=== PATIENT | female | born 1985 | race Caucasian/White ===

== ENCOUNTER 2017-11-12 22:18 | Emergency (ER) | payer SELFPAY ==
[2017-11-12 23:00] LABS: BILIRUBIN,URINE NEGATIVE (NEGATIVE); CALCIUM OXALATE CRYSTALS,URINE TOO NUMEROUS TO CNT /HPF; GLUCOSE, URINE NEGATIVE (NEGATIVE); KETONES,URINE NEGATIVE (NEGATIVE); LEUKOCYTE ESTERASE,URINE NEGATIVE (NEGATIVE); NITRITE,URINE NEGATIVE (NEGATIVE); PROTEIN,URINE NEGATIVE (NEGATIVE); URINE SPECIFIC GRAVITY 1.023
[2017-11-12 23:01] LABS: APPEARANCE,URINE SLIGHTLY HAZY; COLOR,URINE YELLOW
[2017-11-12] MEDS ORDERED: ONDANSETRON HCL INJ/PF 4 MG/2 ML SDV IV ONE (23:11)
[2017-11-12] MEDS ORDERED: NORMAL SALINE 1000 ML 1,000 ML IV ONE (23:11)
--- NOTE | 2017-11-12 23:12 | ER Document Report ---
ED Medical Screen (RME) - General Chief Complaint: Abdominal Pain Stated Complaint: FLANK PAIN Time Seen by Provider: 11/12/17 23:09 Mode of Arrival: Ambulatory Information source: Patient Notes: Patient presents complaining of right upper quadrant abdominal pain that will occasionally cross over to the left upper quadrant. Patient states that she had her gallbladder removed 6 years ago and at that time there was a stone in her common bile duct and they placed a stent in her common bile duct at that time. Patient states that she never followed up after having her surgery. Patient reports nausea and vomiting about 8 times today. Patient reports that urine is dark. Patient was seen at a doctor's office this week and was told that she had elevated liver function tests. TRAVEL OUTSIDE OF THE [place] IN LAST 30 DAYS: No - Related Data Allergies/Adverse Reactions: No Known Allergies Allergy (Unverified 11/12/17 22:25) Physical Exam - Vital signs Vitals: Temp Pulse Resp BP Pulse Ox 98 F 65 20 130/77 H 99 11/12/17 22:29 11/12/17 22:29 11/12/17 22:29 11/12/17 22:29 11/12/17 22:29 - Abdominal Tenderness: Tender - Right upper quadrant Course - Vital Signs Vital signs: Temp Pulse Resp BP Pulse Ox 98 F 65 20 130/77 H 99 11/12/17 22:29 11/12/17 22:29 11/12/17 22:29 11/12/17 22:29 11/12/17 22:29 - Laboratory Laboratory results interpreted by me: 11/12/17 22:30 Urine Urobilinogen 4.0 H
[2017-11-12 23:18] LABS: ABSOLUTE EOSINOPHILS # (AUTO) 0.2 10^3/uL (0.0-0.6); ABSOLUTE MONOCYTES (AUTO) 0.4 10^3/uL (0.1-1.4); ABSOLUTE NEUT (AUTO) 5.6 10^3/uL (1.7-8.2); BASOPHILS % (AUTO) 0.4 % (0-2); EOSINOPHILS % (AUTO) 2.1 % (0-6); HEMATOCRIT 39.6 % (36.0-47.0); HEMOGLOBIN 13.5 g/dL (12.0-15.5); LYMPHOCYTES % (AUTO) 24.5 % (13-45); MEAN CORPUSCULAR HEMOGLOBIN 28.7 pg (27.0-33.4); MEAN CORPUSCULAR VOLUME 85 fl (80-97); MONOCYTES % (AUTO) 4.6 % (3-13); PLATELET COUNT 355 10^3/uL (150-450); RED BLOOD COUNT 4.69 10^6/uL (3.72-5.28); RED CELL DISTRIBUTION WIDTH 14.5 % (11.5-14.0); SEGMENTED NEUTROPHILS % (AUTO) 68.4 % (42-78); TOTAL CELLS COUNTED % (AUTO) 100 %; WHITE BLOOD COUNT 8.2 10^3/uL (4.0-10.5)
[2017-11-12 23:45] LABS: ALANINE AMINOTRANSFERASE 294 U/L (9-52); ALBUMIN 4.7 g/dL (3.5-5.0); ALKALINE PHOSPHATASE 637 U/L (38-126); ANION GAP 12 (5-19); ASPARTATE AMINO TRANSFERASE 198 U/L (14-36); BILIRUBIN,TOTAL 1.2 mg/dL (0.2-1.3); BLOOD UREA NITROGEN 13 mg/dL (7-20); CALCIUM 10.5 mg/dL (8.4-10.2); CARBON DIOXIDE 28 mmol/L (22-30); CHLORIDE 102 mmol/L (98-107); GLUCOSE 99 mg/dL (75-110); LIPASE 140.9 U/L (23-300); POTASSIUM 4.1 mmol/L (3.6-5.0); SODIUM 141.6 mmol/L (137-145); TOTAL PROTEIN 8.1 g/dL (6.3-8.2)
--- NOTE | 2017-11-13 00:38 | ER Document Report ---
ED General - General Chief Complaint: Abdominal Pain Stated Complaint: FLANK PAIN Time Seen by Provider: 11/12/17 23:09 Mode of Arrival: Ambulatory Notes: 32-year-old female presents with several day history of upper abdominal pain nausea and vomiting. This is been going on for a couple of weeks but her vomiting frequency has increased she is now not tolerating p.o. and the pain is worse. She has no fevers chills or shaking. She feels like her urine is gotten quite dark and complains of "peeing bile" She has a history of a cholecystectomy, retained stone, and an ERCP where she states they failed to remove the stone but they did a stent. This was in [place] and was 8 years ago. Since then she has had problems with her weight, intermittent nausea but has not seen a GI doctor. She was told her liver enzymes were elevated when she saw primary care doctor last week but does not have the numbers. TRAVEL OUTSIDE OF THE [place] IN LAST 30 DAYS: No - Related Data Allergies/Adverse Reactions: No Known Allergies Allergy (Unverified 11/12/17 22:25) Past Medical History - General Information source: Patient - Social History Smoking Status: Never Smoker Family History: None Review of Systems - Review of Systems Notes: REVIEW OF SYSTEMS GEN: Denies fever, chills, weight loss ENT: Denies sore throat, nasal discharge, ear pain EYES: Denies blurry vision, eye pain, discharge CV: Denies chest pain, palpitations, edema RESP: Denies cough, shortness of breath, wheezing GI: D abdominal pain nausea vomiting MSK: Denies joint pain/swelling, edema, SKIN: Denies rash, skin lesions LYMPH: Denies swollen glands/lymph nodes NEURO: Denies headache, focal weakness or numbness, dizziness PSYCH: Denies depression, suicidal or homicidal ideation PHYSICAL EXAMINATION General: No acute distress, well-nourished Head: Atraumatic, normocephalic ENT: Mouth normal, oropharynx moist, no exudates or tonsillar enlargement Eyes: Conjunctiva normal, pupils equal, lids normal. No icterus. Neck: No JVD, supple, no guarding CVS: Normal rate, regular rhythm, no murmurs Resp: No resp distress, equal and normal breath sounds bilaterally GI: Nondistended, soft, minimal epigastric tenderness to palpation, no rebound or guarding Ext: No deformities, no edema, normal range of motion in upper and lower ext Back: No CVA or midline TTP Skin: No rash, warm. No jaundice. Lymphatic: No lymphadeopathy noted Neuro: Awake, alert. Face symmetric. GCS 15. Physical Exam - Vital signs Vitals: Temp Pulse Resp BP Pulse Ox 98 F 65 20 130/77 H 99 11/12/17 22:29 11/12/17 22:29 11/12/17 22:29 11/12/17 22:29 11/12/17 22:29 Course - Re-evaluation Re-evalutation: 11/13/17 00:40 This is a 32-year-old female with a history of choledocholithiasis with a stent in place currently presenting with increasing frequency of vomiting superimposed on chronic GI issues. She does not have any vital sign abnormalities is not jaundiced on exam. Her tenderness is minimal. Her differential includes choledocholithiasis, clogged stent, less likely cholangitis. Possible hepatitis or pancreatitis. Labs have been sent ultrasound has been ordered. I will treat her with fluids, and IV antiemetics. 11/13/17 01:59 Labs show elevated alk phos to high 600s as well as elevated transaminases. Patient is still nauseous. She received Zofran was reassessed around 1:50 AM and is feeling better. Her ultrasound shows dilated common bile duct to 1.3 cm. I do not have an old imaging study to compare this to. She probably has a smoldering course with clogged stents. Her lipase is normal so there is no pancreatitis. She has no insurance and has no ability to follow-up. This coupled with her likely need for a GI consultation in the height of her alk phos elevation to find her for transfer to higher level of care for GI consult. Contacted [facility] approximately 1:40 AM. 11/13/17 02:[address] Jaden de paz at 2:17 AM. N.p.o. Maintenance fluids. - Vital Signs Vital signs: Temp Pulse Resp BP Pulse Ox 98 F 65 20 130/77 H 99 11/12/17 22:29 11/12/17 22:29 11/12/17 22:29 11/12/17 22:29 11/12/17 22:29 - Laboratory Result Diagrams: 11/12/17 23:08 11/12/17 23:08 Laboratory results interpreted by me: 11/12/17 11/12/17 11/12/17 22:30 23:08 23:08 RDW 14.5 H Calcium 10.5 H Direct Bilirubin 1.0 H AST 198 H ALT 294 H Alkaline Phosphatase 637 H Urine Urobilinogen 4.0 H - Diagnostic Test Radiology reviewed: Image reviewed, Reports reviewed Discharge - Discharge Clinical Impression: Choledocholithiasis Condition: Fair Disposition: [facility]
--- NOTE | 2017-11-13 01:07 | RADIOLOGY REPORT (SQ) ---
EXAM DESCRIPTION: U/S ABDOMEN LIMITED W/O DOP CLINICAL HISTORY: choledocholithiais, elev LFT, h/o cholecyst COMPARISON: None. TECHNIQUE: Real-time sonographic images of the right upper abdomen were obtained using a curved multihertz transducer. Overlying structures makes evaluation somewhat suboptimal. FINDINGS: The visualized portions of the pancreas are unremarkable. The visualized portions of the aorta and IVC are unremarkable. The liver has normal contour and echogenicity. Hepatopedal flow in the main portal vein. The common bile duct is dilated measuring 1.3 cm. No echogenic structures identified in the visualized portions of the common bile duct. Cholecystectomy. Negative reported sonographic Armijo sign. The right kidney measures 9.6 cm in length. No hydronephrosis, solid renal mass, or shadowing calculi. IMPRESSION: 1. Dilation of the common bile duct. No choledocholithiasis identified on this study. Dilation may be related to prior cholecystectomy however if there is concern for biliary obstruction MRCP would provide additional characterization.
[2017-11-13 08:04] VITALS: BP 109/56
== END 2017-11-13 08:03 | disposition short-term general hospital (02) ==
LOC: ER 22:18
DX: K80.50 Calculus of bile duct without cholangitis or cholecystitis without obstruction (principal); R11.2 Nausea with vomiting, unspecified; Z90.49 Acquired absence of other specified parts of digestive tract; Z98.890 Other specified postprocedural states
CPT/HCPCS: 99285; 96361; 96374; 36415; 83690; 85025; 80053; 81001; 76705; J2405; J7030

== ENCOUNTER 2018-07-19 15:57 | Emergency (ER) | payer MEDICAID ==
[2018-07-19] MEDS ORDERED: NORMAL SALINE 1000 ML 1,000 ML IV ONE (16:50)
[2018-07-19] MEDS ORDERED: FENTANYL CITRATE INJ/PF 100 MCG/2 ML AMPUL IV ONE (16:50)
[2018-07-19] MEDS ORDERED: ONDANSETRON HCL INJ/PF 4 MG/2 ML SDV IV ONE (16:50)
--- NOTE | 2018-07-19 16:52 | ER Document Report ---
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 With abdominal pain radiating to the back. On examination-right upper quadrant tenderness as well as right flank tenderness noted. TRAVEL OUTSIDE OF THE [place] IN LAST 30 DAYS: No - Related Data Allergies/Adverse Reactions: No Known Allergies Allergy (Verified 07/19/18 16:46) Past Medical History - Social History Chew tobacco use (# tins/day): No Frequency of alcohol use: None Drug Abuse: None Renal/ Medical History: Denies: Hx Peritoneal Dialysis Physical Exam - Vital signs Vitals: Temp Pulse Resp BP Pulse Ox 97.8 F 105 H 16 143/74 H 100 07/19/18 16:06 07/19/18 16:06 07/19/18 16:06 07/19/18 16:06 07/19/18 16:06 Course - Vital Signs Vital signs: Temp Pulse Resp BP Pulse Ox 97.8 F 105 H 16 143/74 H 100 07/19/18 16:06 07/19/18 16:06 07/19/18 16:06 07/19/18 16:06 07/19/18 16:06
[2018-07-19 17:44] LABS: HEMATOCRIT 37.8 % (36.0-47.0); HEMOGLOBIN 12.9 g/dL (12.0-15.5); MEAN CORPUSCULAR HGB CONC 34.2 g/dL (32.0-36.0); MEAN CORPUSCULAR VOLUME 85 fl (80-97); PLATELET COUNT 255 10^3/uL (150-450); RED BLOOD COUNT 4.46 10^6/uL (3.72-5.28); RED CELL DISTRIBUTION WIDTH 14.6 % (11.5-14.0); WHITE BLOOD COUNT 13.3 10^3/uL (4.0-10.5)
[2018-07-19 17:58] LABS: APPEARANCE,URINE SLIGHTLY-CLOUDY; BILIRUBIN,URINE NEGATIVE (NEGATIVE); COLOR,URINE YELLOW; GLUCOSE, URINE NEGATIVE (NEGATIVE); KETONES,URINE NEGATIVE (NEGATIVE); LEUKOCYTE ESTERASE,URINE NEGATIVE (NEGATIVE); NITRITE,URINE NEGATIVE (NEGATIVE); PROTEIN,URINE NEGATIVE (NEGATIVE); URINE SPECIFIC GRAVITY 1.013
[2018-07-19 18:09] LABS: ALANINE AMINOTRANSFERASE 152 U/L (9-52); ALKALINE PHOSPHATASE 148 U/L (38-126); ANION GAP 11 (5-19); ASPARTATE AMINO TRANSFERASE 287 U/L (14-36); BILIRUBIN,DIRECT 1.3 mg/dL (0.0-0.4); BILIRUBIN,TOTAL 1.6 mg/dL (0.2-1.3); BLOOD UREA NITROGEN 6 mg/dL (7-20); CALCIUM 9.3 mg/dL (8.4-10.2); CARBON DIOXIDE 24 mmol/L (22-30); CHLORIDE 102 mmol/L (98-107); GLUCOSE 114 mg/dL (75-110); LIPASE 135.6 U/L (23-300); POTASSIUM 3.4 mmol/L (3.6-5.0); SODIUM 136.7 mmol/L (137-145); TOTAL PROTEIN 7.6 g/dL (6.3-8.2)
[2018-07-19 18:11] LABS: ABSOLUTE LYMPHOCYTES# (MANUAL) 0.7 10^3/uL (0.5-4.7); ABSOLUTE MONOCYTES # (MANUAL) 0.5 10^3/uL (0.1-1.4); ABSOLUTE NEUTROPHILS# (MANUAL) 12.1 10^3/uL (1.7-8.2); BASOPHILS % (MANUAL) 0 % (0-2); EOSINOPHILS % (MANUAL) 0 % (0-6); LYMPHOCYTES % (MANUAL) 5 % (13-45); MONOCYTES % (MANUAL) 4 % (3-13); SEGMENTED NEUTROPHILS % (MAN) 91 % (42-78); TOTAL CELLS COUNTED 100
[2018-07-19 18:12] LABS: PLATELET COMMENT ADEQUATE
--- NOTE | 2018-07-19 18:59 | RADIOLOGY REPORT (SQ) ---
EXAM DESCRIPTION: U/S ABDOMEN LIMITED W/O DOP COMPLETED DATE/TIME: 07/19/2018 6:50 pm REASON FOR STUDY: Gallbladder, RUQ PAIN COMPARISON: 11/13/2017 TECHNIQUE: Dynamic and static grayscale images acquired of the abdomen and recorded on PACS. Cliveo jarvis selected color Doppler and spectral images recorded. LIMITATIONS: None. FINDINGS: PANCREAS: No masses. The tail of pancreas was poorly seen. LIVER: No masses. Echotexture normal. LIVER VASCULATURE: Normal directional flow of the main portal vein and hepatic veins. GALLBLADDER: Surgically absent. ULTRASOUND-DETECTED STAHL'S SIGN: Not applicable. INTRAHEPATIC DUCTS AND COMMON DUCT: Common bile duct is dilated at 13 mm. A stent is present in the common bile duct. INFERIOR VENA CAVA: Not imaged. AORTA: No aneurysm. RIGHT KIDNEY: Normal size, 11 cm. Normal echogenicity. No solid or suspicious masses. No hydronephro sis. No calcifications. PERITONEAL AND RIGHT PLEURAL SPACE: No ascites or effusions. OTHER: No other significant findings. IMPRESSION: Status post cholecystectomy with dilatation of the common bile duct. However, there is a stent in the common bile duct. No significant intrahepatic ductal dilatation. TECHNICAL DOCUMENTATION: JOB ID: [id number] [employer] All Rights Reserved Reading location - IP/workstation name: [email or web address]
--- NOTE | 2018-07-19 19:34 | ER Document Report ---
ED General <TIMMY CAHPMAN - Last Filed: 07/20/18 16:04> - General Mode of Arrival: Ambulatory Information source: Patient TRAVEL OUTSIDE OF THE [place] IN LAST 30 DAYS: No <FANNY DICKINSON - Last Filed: 07/20/18 16:06> - General Chief Complaint: Abdominal Pain Stated Complaint: VOMITING, ABDOMINAL PAIN Time Seen by Provider: 07/19/18 16:50 Notes: Patient is a 33-year-old female who presents with chief complaint of abdominal pain. Patient reports she had a cholecystectomy done 10 years ago with a stent placed in the common bile duct for retained stones. Patient reports she was seen at this facility in December and was subsequently transferred to [facility] as she needed her stents to be replaced. Patient reports intermittent episodes of pain with vomiting which typically self resolved. Patient reports that today's episode did not resolve on its own. Patient denies any fevers. Patient does report that she is approximately 9 weeks . (FANNY DICKINSON) - Related Data Allergies/Adverse Reactions: No Known Allergies Allergy (Verified 07/19/18 16:46) Past Medical History - General Information source: Patient - Social History Smoking Status: Current Every Day Smoker Chew tobacco use (# tins/day): No Frequency of alcohol use: None Drug Abuse: None Family History: None Patient has suicidal ideation: No Patient has homicidal ideation: No Renal/ Medical History: Denies: Hx Peritoneal Dialysis Past Surgical History: Reports: Hx Cholecystectomy - With stent placement 2 last placed October 2017 at [facility] - Immunizations Immunizations up to date: Yes <FANNY DICKINSON - Last Filed: 07/20/18 16:06> Review of Systems - Review of Systems Constitutional: No symptoms reported EENT: No symptoms reported Cardiovascular: No symptoms reported Respiratory: No symptoms reported Gastrointestinal: Abdominal pain, Nausea, Vomiting Genitourinary: No symptoms reported Female Genitourinary: No symptoms reported Musculoskeletal: No symptoms reported Skin: No symptoms reported Hematologic/Lymphatic: No symptoms reported Neurological/Psychological: No symptoms reported <FANNY DICKINSON - Last Filed: 07/20/18 16:06> Physical Exam <TIMMY CHAPMAN - Last Filed: 07/20/18 16:04> <FANNY DICKINSON - Last Filed: 07/20/18 16:06> - Vital signs Vitals: Temp Pulse Resp BP Pulse Ox 97.8 F 105 H 16 143/74 H 100 07/19/18 16:06 07/19/18 16:06 07/19/18 16:06 07/19/18 16:06 07/19/18 16:06 - Notes Notes: PHYSICAL EXAMINATION: GENERAL: Well-appearing, well-nourished and in no acute distress. HEAD: Atraumatic, normocephalic. EYES: Pupils equal round and reactive to light, extraocular movements intact, conjunctiva are normal. ENT: Nares patent, oropharynx clear without exudates. Moist mucous membranes. NECK: Normal range of motion, supple without lymphadenopathy LUNGS: Breath sounds clear to auscultation bilaterally and equal. No wheezes rales or rhonchi. HEART: Regular rate and rhythm without murmurs ABDOMEN: Soft, nondistended abdomen. Mild tenderness to palpation to right upper quadrant. No guarding, no rebound. No masses appreciated. Female : deferred Musculoskeletal: Normal range of motion, no pitting or edema. No cyanosis. NEUROLOGICAL: Cranial nerves grossly intact. Normal speech, normal gait. Normal sensory, motor exams PSYCH: Normal mood, normal affect. SKIN: Warm, Dry, normal turgor, no rashes or lesions noted. (FANNY DICKINSON) Course - Laboratory Result Diagrams: 07/20/18 10:18 07/20/18 10:18 <TIMMY CHAPMAN - Last Filed: 07/20/18 16:04> - Laboratory Result Diagrams: 07/20/18 10:18 07/20/18 10:18 <FANNY DICKINSON - Last Filed: 07/20/18 16:06> - Re-evaluation Re-evalutation: 07/20/18 13:35 Patient resting comfortably, denies any complaints at this time. 07/20/18 16:04 Patient is stating that she is hungry and threatening to leave if she is going to have to stay here for extensive periods of time without leaving. [place] contacted [place] [facility] [place] to get an update. Transfer center states that patient should get a bed assignment around [address] Whaley agrees that patient can have dinner right now. Patient updated regarding status and is agreeable with waiting for transfer at this time. (TIMMY CHAPMAN) 07/19/18 19:32 Patient reports she is feeling much better at the time of my initial assessment. Patient reports she has frequent spells of abdominal pain and vomiting like this and has had them for many years. Patient states this one was just worse than most of her episodes. Patient does have leukocytosis with a left shift. AST, ALT and alk phos significantly elevated. Call placed to [facility] to speak with her GI specialist this patient reports she sees them and has seen them as recent as a few weeks ago. 07/19/18 20:[address] Babcock from [facility], he instructed that patient should be transferred however they are not accepting patients at thistime. Suggest to call [place] or [facility]. Called and spoke to [place], they are on a waiting list for beds. Called and spoke to [facility], they are on diversion at this time. Called and spoke to Tamy Hernandez who is also on diversion at this time. 07/19/18 21:25 Called and spoke to [place] again, awaiting callback from director of securities and real estate. 07/19/18 22:[address] Martinez at [place] who agrees to accept patient for transfer. They are currently on bed delay, the plan is for patient to go to the [facility] location when a bed opens up. He would like us to continue maintenance IV fluids, provide analgesic and pain medication. Monitor for signs of infection and plan to start antibiotics if she develops a fever. Patient continues to deny the need for any pain or nausea medication. IV fluids infusing at this time. Patient is asking for medication for headache. Will provide patient with Tylenol. 07/20/18 02:00 Handoff given to MONAE Aiken, patient updated on plan of care. (FANNY DICKINSON) - Vital Signs Vital signs: Temp Pulse Resp BP Pulse Ox 98.8 F 80 18 107/63 99 07/20/18 15:47 07/20/18 00:52 07/20/18 14:01 07/20/18 14:01 07/20/18 14:01 - Laboratory Laboratory results interpreted by me: 07/19/18 07/19/18 07/19/18 17:25 17:25 17:25 WBC 13.3 H Hgb Hct RDW 14.6 H Seg Neutrophils % Seg Neuts % (Manual) 91 H Lymphocytes % Lymphocytes % (Manual) 5 L Abs Neuts (Manual) 12.1 H Sodium 136.7 L Potassium 3.4 L Chloride BUN 6 L Creatinine Glucose 114 H Total Bilirubin 1.6 H Direct Bilirubin 1.3 H AST 287 H ALT 152 H Alkaline Phosphatase 148 H Total Protein Albumin Beta HCG, Quant 15430.00 H Urine Urobilinogen 4.0 H 07/20/18 07/20/18 10:18 10:18 WBC Hgb 11.9 L Hct 34.3 L RDW 14.5 H Seg Neutrophils % 86.5 H Seg Neuts % (Manual) Lymphocytes % 9.1 L Lymphocytes % (Manual) Abs Neuts (Manual) Sodium Potassium Chloride 108 H BUN 5 L Creatinine 0.51 L Glucose Total Bilirubin 3.3 H Direct Bilirubin 2.5 H AST 366 H ALT 414 H Alkaline Phosphatase 143 H Total Protein 6.2 L Albumin 3.3 L Beta HCG, Quant Urine Urobilinogen Discharge <TIMMY CHAPMAN - Last Filed: 07/20/18 16:04> <FANNY DICKINSON - Last Filed: 07/20/18 16:06> - Discharge Disposition: [place]
[2018-07-19] MEDS ORDERED: RINGERS SOLUTION,LACTATED 1,000 ML IV ONE (21:30)
[2018-07-20] MEDS ORDERED: ACETAMINOPHEN 325 MG TABLET PO ONE (01:10)
[2018-07-20] MEDS ORDERED: RINGERS SOLUTION,LACTATED 1,000 ML IV ONE (07:10)
--- NOTE | 2018-07-20 10:13 | ER Document Report ---
Doctor's Note Notes: 07/20/18 10:08 Interviewed and examined patient. Reviewed chart. Patient with a history of a cholecystectomy 10 years ago followed by a biliary stent because of residual stone which could not be removed. She has episodes of pain like she is having on this ER visit. She had a new stent placed at [facility] in December of this year. She had a very severe episode of this right upper quadrant pain last night associated with vomiting. However, patient says that her symptoms have improved significantly since she vomited last night. Says she feels much better now. Patient is approximately 9 weeks . Patient's labs showed very slight elevation of WBC at 13,300 with 91 segs, very slight elevation of LFTs. Normal lipase. Patient has received IV fluids, but no antibiotics at this point. Afebrile. 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 Calls were made to [place], [facility], and [facility] and none of them had any beds, although [place] has indicated that they expect to have a bed and will accept the patient in transfer. Arrangements have been made for the patient be transferred to [place]. Patient was allowed to have breakfast this morning. She looks very well. Abdomen is soft with slight tenderness in the right upper quadrant. Ultrasound here showed a status post cholecystectomy with dilatation of the common bile duct. There was a stent noted in the common bile duct. I am going to repeat some basic labs to make sure patient is stable. Rosetta Whaley MD 07/20/18 12:17 Complaining of nausea. Repeat labs shows improvement in her CBC, but her LFTs have gone up slightly more than they were. Patient remains without any other complaints.
[2018-07-20 10:55] LABS: ALANINE AMINOTRANSFERASE 414 U/L (9-52); ALBUMIN 3.3 g/dL (3.5-5.0); ALKALINE PHOSPHATASE 143 U/L (38-126); ANION GAP 8 (5-19); ASPARTATE AMINO TRANSFERASE 366 U/L (14-36); BILIRUBIN,DIRECT 2.5 mg/dL (0.0-0.4); BILIRUBIN,TOTAL 3.3 mg/dL (0.2-1.3); BLOOD UREA NITROGEN 5 mg/dL (7-20); CALCIUM 9.3 mg/dL (8.4-10.2); CARBON DIOXIDE 22 mmol/L (22-30); CHLORIDE 108 mmol/L (98-107); GLUCOSE 102 mg/dL (75-110); LIPASE 71.2 U/L (23-300); POTASSIUM 3.7 mmol/L (3.6-5.0); SODIUM 138.1 mmol/L (137-145); TOTAL PROTEIN 6.2 g/dL (6.3-8.2)
[2018-07-20 11:00] LABS: ABSOLUTE LYMPHOCYTES (AUTO) 0.9 10^3/uL (0.5-4.7); ABSOLUTE MONOCYTES (AUTO) 0.4 10^3/uL (0.1-1.4); ABSOLUTE NEUT (AUTO) 8.2 10^3/uL (1.7-8.2); BASOPHILS % (AUTO) 0.2 % (0-2); EOSINOPHILS % (AUTO) 0.5 % (0-6); HEMATOCRIT 34.3 % (36.0-47.0); HEMOGLOBIN 11.9 g/dL (12.0-15.5); LYMPHOCYTES % (AUTO) 9.1 % (13-45); MEAN CORPUSCULAR HEMOGLOBIN 29.4 pg (27.0-33.4); MEAN CORPUSCULAR HGB CONC 34.6 g/dL (32.0-36.0); MEAN CORPUSCULAR VOLUME 85 fl (80-97); MONOCYTES % (AUTO) 3.7 % (3-13); PLATELET COUNT 221 10^3/uL (150-450); RED BLOOD COUNT 4.04 10^6/uL (3.72-5.28); RED CELL DISTRIBUTION WIDTH 14.5 % (11.5-14.0); SEGMENTED NEUTROPHILS % (AUTO) 86.5 % (42-78); TOTAL CELLS COUNTED % (AUTO) 100 %; WHITE BLOOD COUNT 9.5 10^3/uL (4.0-10.5)
[2018-07-20] MEDS ORDERED: ONDANSETRON HCL INJ/PF 4 MG/2 ML SDV IV ONE (12:18)
[2018-07-20 19:48] VITALS: BP 104/50
== END 2018-07-20 20:05 | disposition short-term general hospital (02) ==
LOC: ER 15:57
DX: O26.891 Other specified pregnancy related conditions, first trimester (principal); Z3A.09 9 weeks gestation of pregnancy
CPT/HCPCS: 96376; 99285; 96361; 96374; 96375; 36415; 84702; 83690; 85025; 80053; 81001; 76705; J3490; J3010; J2405 ×2

== ENCOUNTER 2018-07-28 22:33 | Emergency (ER) | payer MEDICAID ==
[2018-07-29] MEDS ORDERED: NORMAL SALINE 1000 ML 1,000 ML IV ONE ×2 (00:09→03:07)
[2018-07-29] MEDS ORDERED: FENTANYL CITRATE INJ/PF 100 MCG/2 ML AMPUL IV ONE ×2 (00:09→01:22)
[2018-07-29] MEDS ORDERED: METOCLOPRAMIDE HCL INJ/PF 10 MG/2 ML SDV IV ONE (00:09)
--- NOTE | 2018-07-29 00:15 | ER Document Report ---
ED GI/ - General Mode of Arrival: Ambulatory Information source: Patient TRAVEL OUTSIDE OF THE [place] IN LAST 30 DAYS: No <GARCÍA DOBSON - Last Filed: 07/29/18 04:22> <JASON GUZMÁN - Last Filed: 07/29/18 06:21> - General Chief Complaint: Abdominal Pain Stated Complaint: ABDOMINAL PAIN/THROWING UP BLOOD Time Seen by Provider: 07/29/18 00:02 Notes: Patient is a 33 year old female approximately 10 weeks presents to the emergency department complaining of right upper quadrant pain and back pain. Patient states she was transferred to [place] 1 week ago for a bowel obstruction and discharged shortly after due to not being able to perform any procedures due to being . Patient states she has a copious amount of stones in her common bile duct and had stents placed in October 2017 and 7 years ago. She also reports having a cholecystectomy approximately 10 years ago. Patient states her pain is currently very severe. Patient also complains of nausea, hematemesis and a subjective fever. Patient states she follows up with GI specialist, Dr. Valladares, at [facility]. (GARCÍA DOBSON) - Related Data Allergies/Adverse Reactions: No Known Allergies Allergy (Verified 07/19/18 16:46) Past Medical History - General Information source: Patient - Social History Smoking Status: Current Every Day Smoker Cigarette use (# per day): Yes Chew tobacco use (# tins/day): No Smoking Education Provided: No Family History: None Past Surgical History: Reports: Hx Cholecystectomy - With stent placement 2 last placed October 2017 at [facility] - Immunizations Immunizations up to date: Yes <GARCÍA DOBSON - Last Filed: 07/29/18 04:22> Physical Exam - General General appearance: Other - Appears uncomfortable In distress: None - HEENT Head: Normocephalic Eyes: Normal Conjunctiva: Normal Extraocular movements intact: Yes Pupils: PERRL Mucous membranes: Dry Neck: Normal - Respiratory Respiratory status: No respiratory distress Chest status: Nontender Breath sounds: Normal Chest palpation: Normal - Cardiovascular Rhythm: Regular Heart sounds: Normal auscultation Murmur: No Friction rub: No Gallop: None auscultated - Abdominal Inspection: Normal Distension: No distension Tenderness: Tender - RUQ and Epigastric tender to palpation Organomegaly: No organomegaly - Back Back: Normal - Extremities General upper extremity: Normal ROM General lower extremity: Normal ROM - Neurological Neuro grossly intact: Yes Cognition: Normal Orientation: AAOx4 [place] Coma Scale Eye Opening: Spontaneous [place] Coma Scale Verbal: Oriented [place] Coma Scale Motor: Obeys Commands [place] Coma Scale Total: 15 Speech: Normal - Psychological Associated symptoms: Normal affect, Normal mood - Skin Skin Temperature: Warm Skin Moisture: Dry Skin Color: Normal <GARCÍA DOBSON - Last Filed: 07/29/18 04:22> - Vital signs Vitals: Temp Pulse Resp BP Pulse Ox 97.9 F 81 20 129/68 H 100 07/28/18 23:06 07/28/18 23:06 07/28/18 23:06 07/28/18 23:06 07/28/18 23:06 Course - Laboratory Result Diagrams: 07/29/18 00:20 07/29/18 00:20 <GARCÍA DOBSON - Last Filed: 07/29/18 04:22> - Laboratory Result Diagrams: 07/29/18 00:20 07/29/18 00:20 - Diagnostic Test Radiology reviewed: Reports reviewed <JASON GUZMÁN - Last Filed: 07/29/18 06:21> - Re-evaluation Re-evalutation: 07/29/18 04:22 [facility] accepts the patient to their services. (GARCÍA DOBSON) 07/29/18 03:06 Patient is a 33-year-old female with a history of cholecystectomy and biliary stent who comes in complaining of right upper quadrant pain and vomiting. Patient was recently seen on and transferred to [place] for further evaluation of possibly obstructed biliary stent. Patient is about 10 weeks and states that they will not do anything to her at [place] because of the . States that right upper quadrant pain, pain into back, and vomiting are worse than they have ever been. Denies having vomiting with this so far. She is [facility] on Tuesday. LFTs elevated. No fever. Patient is still vomiting currently despite Reglan. She still having pain despite fentanyl. Ultrasound showing the common bile duct is not 1.8 cm, up from 1.3 cm when she was seen on 07/19. There are no GI services available at this hospital. Patient's preference is to go to [facility] where her GI doctor is. 03:[address] Blair at [facility]. She will discuss with attending 04:22 Patient accepted to [facility] for evaluation of biliary stent with possible obstruction. 07/29/18 05:02 Patient resting comfortably. No further pain or vomiting. Medically stable for transfer. Agrees with transfer. 07/29/18 06:21 Patient complaining of abdominal pain. Morphine ordered again. Stable for transfer, awaiting ground. (JASON GUZMÁN) - Vital Signs Vital signs: Temp Pulse Resp BP Pulse Ox 97.9 F 81 20 129/68 H 100 07/28/18 23:06 07/28/18 23:06 07/28/18 23:06 07/28/18 23:06 07/28/18 23:06 - Laboratory Laboratory results interpreted by me: 07/29/18 07/29/18 07/29/18 00:20 00:20 02:35 WBC 16.7 H RDW 14.6 H Seg Neutrophils % 91.3 H Lymphocytes % 5.7 L Monocytes % 2.8 L Absolute Neutrophils 15.3 H Sodium 134.3 L Glucose 124 H Total Bilirubin 1.7 H Direct Bilirubin 1.5 H AST 168 H ALT 125 H Alkaline Phosphatase 175 H Beta HCG, Quant 16086.00 H Urine Ketones TRACE H Urine Urobilinogen 4.0 H Critical Care Note - Critical Care Note Total time excluding time spent on procedures (mins): 60 - Evaluation and management of abdominal pain, vomiting, evaluation of possible common bile duct obstruction, coordination of transfer, counseling of patient, multiple re- evaluations <JASNO GUZMÁN - Last Filed: 07/29/18 06:21> Discharge <GARCÍA DOBSON - Last Filed: 07/29/18 04:22> <JASON GUZMÁN - Last Filed: 07/29/18 06:21> - Discharge Clinical Impression: Bile duct obstruction Abdominal pain Qualifiers: Abdominal location: unspecified location Qualified Code(s): R10.9 - Unspecified abdominal pain Condition: Stable Disposition: [facility] Referrals: LILIBETH COOLEY MD [Primary Care Provider] - Follow up as needed Scribe Attestation: 07/29/18 05:05 I personally performed the services described in the documentation, reviewed and edited the documentation which was dictated to the scribe in my presence, and it accurately records my words and actions. (JASON GUZMÁN) Scribe Documentation - Scribe Written by Scribe:: Stacy Hdz, 07/29/2018 01:57 acting as scribe for :: Marcos <GARCÍA DOBSON - Last Filed: 07/29/18 04:22>
[2018-07-29 00:37] LABS: ABSOLUTE MONOCYTES (AUTO) 0.5 10^3/uL (0.1-1.4); ABSOLUTE NEUT (AUTO) 15.3 10^3/uL (1.7-8.2); BASOPHILS % (AUTO) 0.1 % (0-2); EOSINOPHILS % (AUTO) 0.1 % (0-6); HEMOGLOBIN 12.3 g/dL (12.0-15.5); LYMPHOCYTES % (AUTO) 5.7 % (13-45); MEAN CORPUSCULAR HEMOGLOBIN 29.1 pg (27.0-33.4); MEAN CORPUSCULAR HGB CONC 34.2 g/dL (32.0-36.0); MEAN CORPUSCULAR VOLUME 85 fl (80-97); MONOCYTES % (AUTO) 2.8 % (3-13); PLATELET COUNT 255 10^3/uL (150-450); RED BLOOD COUNT 4.23 10^6/uL (3.72-5.28); RED CELL DISTRIBUTION WIDTH 14.6 % (11.5-14.0); SEGMENTED NEUTROPHILS % (AUTO) 91.3 % (42-78); TOTAL CELLS COUNTED % (AUTO) 100 %; WHITE BLOOD COUNT 16.7 10^3/uL (4.0-10.5)
[2018-07-29 00:50] LABS: ALANINE AMINOTRANSFERASE 125 U/L (9-52); ALBUMIN 4.1 g/dL (3.5-5.0); ALKALINE PHOSPHATASE 175 U/L (38-126); ANION GAP 8 (5-19); ASPARTATE AMINO TRANSFERASE 168 U/L (14-36); BILIRUBIN,DIRECT 1.5 mg/dL (0.0-0.4); BILIRUBIN,TOTAL 1.7 mg/dL (0.2-1.3); BLOOD UREA NITROGEN 7 mg/dL (7-20); CALCIUM 9.3 mg/dL (8.4-10.2); CARBON DIOXIDE 25 mmol/L (22-30); CHLORIDE 101 mmol/L (98-107); CREATINE KINASE 41 U/L (30-135); GLUCOSE 124 mg/dL (75-110); LIPASE 97.3 U/L (23-300); POTASSIUM 4.2 mmol/L (3.6-5.0); SODIUM 134.3 mmol/L (137-145); TOTAL PROTEIN 7.2 g/dL (6.3-8.2)
--- NOTE | 2018-07-29 02:09 | RADIOLOGY REPORT (SQ) ---
Chest 2 view on 07/29/2018 at 2:26 AM CLINICAL INDICATION: Fever, nausea COMPARISON: None FINDINGS: The lungs are clear. Cardiac, hilar and mediastinal contours are within normal limits. Pulmonary vascularity is within normal limits. No bony abnormality is noted. IMPRESSION: No active disease.
[2018-07-29 02:56] LABS: APPEARANCE,URINE SLIGHTLY-CLOUDY; BILIRUBIN,URINE NEGATIVE (NEGATIVE); COLOR,URINE YELLOW; GLUCOSE, URINE NEGATIVE (NEGATIVE); KETONES,URINE TRACE mg/dL (NEGATIVE); LEUKOCYTE ESTERASE,URINE NEGATIVE (NEGATIVE); NITRITE,URINE NEGATIVE (NEGATIVE); PROTEIN,URINE NEGATIVE (NEGATIVE); URINE SPECIFIC GRAVITY 1.016
[2018-07-29] MEDS ORDERED: MORPHINE SULFATE 10 MG/ML INJ IV ONE ×4 (03:06→09:31)
[2018-07-29] MEDS ORDERED: ONDANSETRON HCL INJ/PF 4 MG/2 ML SDV IV ONE (03:06)
--- NOTE | 2018-07-29 03:20 | RADIOLOGY REPORT (SQ) ---
EXAM DESCRIPTION: US ABDOMEN LIMITED COMPLETED DATE/TME: 07/29/2018 01:21 CLINICAL HISTORY: 33 years, Female, RUQ pain, N/V, evaluate CBD COMPARISON: 07/19/2018 TECHNIQUE: Grayscale and Doppler sonogram of the abdomen LIMITATIONS: None. FINDINGS: Pancreas: Visualized portion is unremarkable. Aorta: Visualized portion is unremarkable. IVC: Visualized portion is unremarkable. Liver: Parenchyma: Homogenous echotexture. Length: 15.9 cm. Main portal vein: Normal directional flow. Gallbladder: Cholecystectomy Common bile duct: Diameter: 1.8 cm. Right kidney: Length: 11.3 x 4.9 x 5.6 cm. No hydronephrosis. IMPRESSION: Cholecystectomy. The common bile duct measures up to 1.8 cm, increased in size from the prior of 1.3 cm. No evidence of choledocholithiasis on this exam. 2011 [employer]- All Rights Reserved
[2018-07-29] MEDS ORDERED: PANTOPRAZOLE SODIUM 40 MG VIAL IV ONE (03:28)
--- NOTE | 2018-07-29 09:56 | ER Document Report ---
Doctor's Note Notes: 07/29/18 09:56 Patient evaluated and stable for transport
[2018-07-29 09:59] VITALS: BP 130/79
== END 2018-07-29 10:02 | disposition short-term general hospital (02) ==
LOC: ER 22:33
DX: O26.91 Pregnancy related conditions, unspecified, first trimester (principal); K83.1 Obstruction of bile duct; R10.9 Unspecified abdominal pain; O99.331 Smoking (tobacco) complicating pregnancy, first trimester; Z3A.10 10 weeks gestation of pregnancy
CPT/HCPCS: 96376; 99291; 96361; 96374; 96375; 36415; 87040; 82550; 84702; 83690; 85025; 80053; 81001; 83605; 71046; 76705; J3010; J2765; J2270; S0164; J2405

== ENCOUNTER 2018-12-30 17:55 | Outpatient (CLI) | payer MEDICAID ==
[2018-12-30 18:46] LABS: APPEARANCE,URINE SLIGHTLY-CLOUDY; BILIRUBIN,URINE NEGATIVE (NEGATIVE); COLOR,URINE YELLOW; GLUCOSE, URINE 150 mg/dL (NEGATIVE); KETONES,URINE NEGATIVE (NEGATIVE); LEUKOCYTE ESTERASE,URINE TRACE (NEGATIVE); NITRITE,URINE NEGATIVE (NEGATIVE); PROTEIN,URINE NEGATIVE (NEGATIVE); URINE SPECIFIC GRAVITY 1.023
[2018-12-30 18:58] LABS: URINE AMPHETAMINES SCREEN NEGATIVE; URINE BARBITURATES SCREEN NEGATIVE; URINE BENZODIAZEPINES SCREEN NEGATIVE; URINE COCAINE SCREEN NEGATIVE; URINE MARIJUANA (THC) SCREEN NEGATIVE; URINE METHADONE SCREEN NEGATIVE; URINE PHENCYCLIDINE SCREEN NEGATIVE
== END 2018-12-30 20:52 | disposition home or self-care (01) ==
LOC: LC 17:55
PROVIDERS: ATTEND Obstetrics & Gynecology
PROC: 4A1HXCZ Monitoring of Products of Conception, Cardiac Rate, External Approach (ICD-10-PCS; principal; 2018-12-30)
DX: O47.03 False labor before 37 completed weeks of gestation, third trimester (principal); O99.333 Smoking (tobacco) complicating pregnancy, third trimester; F17.210 Nicotine dependence, cigarettes, uncomplicated; Z3A.32 32 weeks gestation of pregnancy
CPT/HCPCS: 80307; 81001

== ENCOUNTER 2019-01-23 14:38 | Observation (INO) | payer MEDICAID ==
--- NOTE | 2019-01-23 14:46 | Non Stress Test Report ---
Non Stress Test Datetime Report Generated by CPN: 01/23/2019 14:45 DEMOGRAPHIC EGA NST: 32.4 INDICATION Indication for Study: Ordered by Provider; Other Indication for Study (NST) Other: labor check MONITORING Monitor Explained: Monitor Explained; Test Explained; Patient Verbalized Understanding Time on Monitor: 12/30/2018 18:29 Time off Monitor: 12/30/2018 20:35 NST Duration: 126 NST INTERVENTIONS NST Interventions: PO Hydration; IV Fluids Physician Notified NST: sanchez BABY A: [id number] BABY A Movement : Present Contraction Frequency : uterine irritability FHR Baseline : 145 Accelerations : 15X15 Decelerations : None Variability : Moderate 6-25bpm NST Review: Meets Criteria for Reactive NST NST Review and Verified By : ARNULFO Sage Results: Reactive NST REPORT Report Trigger: Send Report
[2019-01-23 16:13] LABS: ABSOLUTE MONOCYTES (AUTO) 0.3 10^3/uL (0.1-1.4); BASOPHILS % (AUTO) 0.2 % (0-2); TOTAL CELLS COUNTED % (AUTO) 100 %
[2019-01-23 16:17] LABS: ALANINE AMINOTRANSFERASE 86 U/L (9-52); ALBUMIN 3.1 g/dL (3.5-5.0); ALKALINE PHOSPHATASE 652 U/L (38-126); ANION GAP 11 (5-19); ASPARTATE AMINO TRANSFERASE 57 U/L (14-36); BILIRUBIN,DIRECT 3.9 mg/dL (0.0-0.4); BILIRUBIN,TOTAL 4.3 mg/dL (0.2-1.3); BLOOD UREA NITROGEN 6 mg/dL (7-20); CALCIUM 8.9 mg/dL (8.4-10.2); CARBON DIOXIDE 19 mmol/L (22-30); CHLORIDE 106 mmol/L (98-107); GAMMA-GLUTAMYL TRANSFERASE 707 U/L (8-78); GLUCOSE 92 mg/dL (75-110); POTASSIUM 3.6 mmol/L (3.6-5.0); SODIUM 135.7 mmol/L (137-145); TOTAL PROTEIN 6.4 g/dL (6.3-8.2)
[2019-01-23 16:38] LABS: ABSOLUTE LYMPHOCYTES (AUTO) 1.3 10^3/uL (0.5-4.7); ABSOLUTE NEUT (AUTO) 5.2 10^3/uL (1.7-8.2); EOSINOPHILS % (AUTO) 0.4 % (0-6); HEMATOCRIT 32.2 % (36.0-47.0); HEMOGLOBIN 11.1 g/dL (12.0-15.5); LYMPHOCYTES % (AUTO) 19.1 % (13-45); MEAN CORPUSCULAR HEMOGLOBIN 28.5 pg (27.0-33.4); MEAN CORPUSCULAR HGB CONC 34.4 g/dL (32.0-36.0); MEAN CORPUSCULAR VOLUME 83 fl (80-97); MONOCYTES % (AUTO) 4.5 % (3-13); PLATELET COUNT 324 10^3/uL (150-450); RED BLOOD COUNT 3.89 10^6/uL (3.72-5.28); RED CELL DISTRIBUTION WIDTH 14.5 % (11.5-14.0); SEGMENTED NEUTROPHILS % (AUTO) 75.8 % (42-78); WHITE BLOOD COUNT 6.9 10^3/uL (4.0-10.5)
[2019-01-23] MEDS ORDERED: DIPHENHYDRAMINE HCL 25 MG CAPSULE ONE (17:34)
[2019-01-23] MEDS ORDERED: RINGERS SOLUTION,LACTATED 1,000 ML IV PRN (17:36)
[2019-01-23] MEDS: DIPHENHYDRAMINE HCL 25 MG CAPSULE PO PRN (17:50)
[2019-01-23 18:27] LABS: URINE AMPHETAMINES SCREEN NEGATIVE; URINE BARBITURATES SCREEN NEGATIVE; URINE BENZODIAZEPINES SCREEN NEGATIVE; URINE COCAINE SCREEN NEGATIVE; URINE MARIJUANA (THC) SCREEN NEGATIVE; URINE METHADONE SCREEN NEGATIVE; URINE PHENCYCLIDINE SCREEN NEGATIVE
--- NOTE | 2019-01-24 00:27 | Non Stress Test Report ---
Non Stress Test Datetime Report Generated by CPN: 01/24/2019 00:27 DEMOGRAPHIC Test Number: 3 EGA NST: 36.1 EGA NST: 36.0 INDICATION Indication for Study: Ordered by Provider; Other Indication for Study: Ordered by Provider; Other Indication for Study (NST) Other: Observation Indication for Study (NST) Other: 36 weeks jaundice VITAL SIGNS Temperature - NST: 97.7 Pulse - NST: 67 RESP - NST: 14 NBPSYS NST: 123 NBPDIA NST: 59 MONITORING Monitor Explained: Monitor Explained; Test Explained; Patient Verbalized Understanding Monitor Explained: Monitor Explained; Test Explained; Patient Verbalized Understanding Time on Monitor: 01/24/2019 00:01 Time on Monitor: 01/23/2019 14:54 Time off Monitor: 01/24/2019 00:23 Time off Monitor: 01/23/2019 17:11 NST Duration: 22 NST Duration: 137 NST INTERVENTIONS NST Interventions: PO Hydration; Reposition Patient NST Interventions: PO Hydration; Reposition Patient Physician Notified NST: Dr. Sutton BABY A Movement : Present Movement : Present Contraction Frequency : Irregular Contraction Frequency : q5-10min FHR Baseline : 145 Accelerations : 15X15 Accelerations : 15X15 Decelerations : None Decelerations : None Variability : Moderate 6-25bpm Variability : Moderate 6-25bpm NST Review: Meets Criteria for Reactive NST NST Review: Meets Criteria for Reactive NST NST Review and Verified By : LASHAWN Shepherd NST Review and Verified By : Lulu Price RN NST Results: Reactive NST Results: Reactive NST REPORT Report Trigger: Send Report
[2019-01-24] MEDS ORDERED: DIPHENHYDRAMINE HCL 25 MG CAPSULE ONE (00:29)
[2019-01-24] MEDS: DIPHENHYDRAMINE HCL 25 MG CAPSULE PO PRN (00:32)
[2019-01-24 06:27] LABS: ABSOLUTE EOSINOPHILS # (AUTO) 0.1 10^3/uL (0.0-0.6); ABSOLUTE LYMPHOCYTES (AUTO) 1.4 10^3/uL (0.5-4.7); ABSOLUTE MONOCYTES (AUTO) 0.2 10^3/uL (0.1-1.4); BASOPHILS % (AUTO) 0.3 % (0-2); EOSINOPHILS % (AUTO) 1.2 % (0-6); HEMATOCRIT 30.9 % (36.0-47.0); HEMOGLOBIN 10.6 g/dL (12.0-15.5); MEAN CORPUSCULAR HEMOGLOBIN 28.6 pg (27.0-33.4); MEAN CORPUSCULAR HGB CONC 34.2 g/dL (32.0-36.0); MEAN CORPUSCULAR VOLUME 84 fl (80-97); PLATELET COUNT 283 10^3/uL (150-450); RED CELL DISTRIBUTION WIDTH 14.6 % (11.5-14.0); SEGMENTED NEUTROPHILS % (AUTO) 70.5 % (42-78); TOTAL CELLS COUNTED % (AUTO) 100 %; WHITE BLOOD COUNT 5.7 10^3/uL (4.0-10.5)
[2019-01-24 06:54] LABS: ALANINE AMINOTRANSFERASE 85 U/L (9-52); ALBUMIN 2.9 g/dL (3.5-5.0); ALKALINE PHOSPHATASE 609 U/L (38-126); ANION GAP 8 (5-19); ASPARTATE AMINO TRANSFERASE 48 U/L (14-36); BILIRUBIN,DIRECT 1.6 mg/dL (0.0-0.4); BILIRUBIN,TOTAL 2.1 mg/dL (0.2-1.3); BLOOD UREA NITROGEN 5 mg/dL (7-20); CALCIUM 8.6 mg/dL (8.4-10.2); CARBON DIOXIDE 19 mmol/L (22-30); CHLORIDE 108 mmol/L (98-107); GAMMA-GLUTAMYL TRANSFERASE 725 U/L (8-78); GLUCOSE 99 mg/dL (75-110); POTASSIUM 3.7 mmol/L (3.6-5.0); SODIUM 135.1 mmol/L (137-145); TOTAL PROTEIN 6.1 g/dL (6.3-8.2)
--- NOTE | 2019-01-24 08:55 | Non Stress Test Report ---
Non Stress Test Datetime Report Generated by CPN: 01/24/2019 08:55 DEMOGRAPHIC EGA NST: 36.1 INDICATION Indication for Study: Ordered by Provider VITAL SIGNS Temperature - NST: 97.5 RESP - NST: 18 NBPSYS NST: 115 NBPDIA NST: 57 MONITORING Monitor Explained: Monitor Explained; Test Explained; Patient Verbalized Understanding; Other Time on Monitor: 01/24/2019 08:18 Time off Monitor: 01/24/2019 08:39 NST Duration: 21 NST INTERVENTIONS NST Interventions: PO Hydration; Reposition Patient Physician Notified NST: Dr Kg BABY A Movement : Present Contraction Frequency : none FHR Baseline : 145 Accelerations : 15X15 Decelerations : None Variability : Moderate 6-25bpm NST Review: Meets Criteria for Reactive NST NST Review and Verified By : Salina Leal RNC NST Results: Reactive NST REPORT Report Trigger: Send Report
[2019-01-24 09:04] LABS: APPEARANCE,URINE SLIGHTLY-CLOUDY; BILIRUBIN,URINE SMALL (NEGATIVE); COLOR,URINE AMBER; GLUCOSE, URINE NEGATIVE (NEGATIVE); KETONES,URINE NEGATIVE (NEGATIVE); LEUKOCYTE ESTERASE,URINE TRACE (NEGATIVE); NITRITE,URINE NEGATIVE (NEGATIVE); PROTEIN,URINE NEGATIVE (NEGATIVE); URINE SPECIFIC GRAVITY 1.015
--- NOTE | 2019-01-24 11:32 | PDOC TRANSFER SUMMARY ---
General Admission Date/PCP: 01/23/19 17:11 HUY SHERWOOD MD Transfer Date: 01/24/19 Accepting Facility: [facility] Accepting Physician: Dr. Mosqueda Resuscitation Status: Full Code - Transfer Diagnosis (1) Is this a current diagnosis for this admission?: Yes (2) Biliary stasis, intrahepatic Is this a current diagnosis for this admission?: Yes (3) Biliary stent obstruction Is this a current diagnosis for this admission?: Yes (4) Jaundice with stoppage of bile flow Is this a current diagnosis for this admission?: Yes - Transfer Medications Home Medications: Ferrous Sulfate [Iron] 325 mg PO DAILY 12/30/18 Vit,Calc76/Iron/Folic [Prenatabs Rx Tablet] 1 tab PO DAILY 12/30/18 Transfer Medications: Current Medications Diphenhydramine HCl (Benadryl 25 Mg Capsule) 25 mg PO Q6HP PRN PRN Reason: ITCHING Stop: 02/22/19 17:39 Last Admin: 01/24/19 00:32 Dose: 25 mg Documented by: Lactated Ringer's (Lactated Ringers 1000 Ml Iv Soln) 1,000 mls @ 999 mls/hr IV CONTINUOUS PRN PRN Reason: THIS MED IS NOT "PRN" Stop: 02/22/19 17:35 - Allergies Allergies/Adverse Reactions: No Known Allergies Allergy (Verified 01/23/19 14:49) - Diet/Activity Discharge Diet: Other (Comments) - low fat Discharge Activity: Balance Activity w/Rest Hospital Course Hospital Course: patient with history of ERCP earlier in this and extensive history of repeated biliary stents in the past. Is 36 wks and 1 day . Presented yesterday evening with complaints of jaundice. Indicates that she has not taken her urodiosol as prescribed 3 wks ago due to side effects Physical Exam Vital Signs: Intake & Output 01/23/19 01/24/19 01/25/19 06:59 06:59 06:59 Weight 98.6 kg General appearance: PRESENT: no acute distress, cooperative Head exam: PRESENT: atraumatic Eye exam: PRESENT: scleral icterus - mild yellowing of sclera GI/Abdominal exam: PRESENT: soft - fundal height 4 above umbilicus. Cervix: closed/thick/high per RN exam Skin exam: PRESENT: jaundice - mildly jaundiced Results Laboratory Results: 01/24/19 05:46 01/24/19 05:46 01/23/19 01/23/19 01/24/19 15:30 15:30 05:46 WBC 6.9 5.7 RBC 3.89 3.70 L Hgb 11.1 L 10.6 L Hct 32.2 L 30.9 L MCV 83 84 MCH 28.5 28.6 MCHC 34.4 34.2 RDW 14.5 H 14.6 H Plt Count 324 283 Seg Neutrophils % 75.8 70.5 Lymphocytes % 19.1 24.0 Monocytes % 4.5 4.0 Eosinophils % 0.4 1.2 Basophils % 0.2 0.3 Absolute Neutrophils 5.2 4.0 Absolute Lymphocytes 1.3 1.4 Absolute Monocytes 0.3 0.2 Absolute Eosinophils 0.0 0.1 Absolute Basophils 0.0 0.0 Sodium 135.7 L Potassium 3.6 Chloride 106 Carbon Dioxide 19 L Anion Gap 11 BUN 6 L Creatinine 0.45 L Est GFR ( Amer) > 60 Est GFR (Non-Af Amer) > 60 Glucose 92 Calcium 8.9 Total Bilirubin 4.3 H GGT 707 H AST 57 H ALT 86 H Alkaline Phosphatase 652 H Total Protein 6.4 Albumin 3.1 L Urine Color Urine Appearance Urine pH Ur Specific [place] Urine Protein Urine Glucose (UA) Urine Ketones Urine Blood Urine Nitrite Ur Leukocyte Esterase 01/24/19 01/24/19 05:46 08:00 WBC RBC Hgb Hct MCV MCH MCHC RDW Plt Count Seg Neutrophils % Lymphocytes % Monocytes % Eosinophils % Basophils % Absolute Neutrophils Absolute Lymphocytes Absolute Monocytes Absolute Eosinophils Absolute Basophils Sodium 135.1 L Potassium 3.7 Chloride 108 H Carbon Dioxide 19 L Anion Gap 8 BUN 5 L Creatinine 0.42 L Est GFR ( Amer) > 60 Est GFR (Non-Af Amer) > 60 Glucose 99 Calcium 8.6 Total Bilirubin 2.1 H GGT 725 H AST 48 H ALT 85 H Alkaline Phosphatase 609 H Total Protein 6.1 L Albumin 2.9 L Urine Color ANA Urine Appearance SLIGHTLY-CLOUDY Urine pH 6.0 Ur Specific [place] 1.015 Urine Protein NEGATIVE Urine Glucose (UA) NEGATIVE Urine Ketones NEGATIVE Urine Blood NEGATIVE Urine Nitrite NEGATIVE Ur Leukocyte Esterase TRACE H Plan Discharge Plan: patient evaluated by myself and Dr. Ramirez (general surgery) and she is in need of ERCP due to biliary obstruction golden. GI services not available here at [facility] for the rest of the month. Patient's GI doctor is Dr. Valladares in [place] and is the doctor that the patient indicates placed her last stent in July. Consensus is that patient needs to be delivered and have biliary obstruction addressed golden. Thank you Dr. Mosqueda for accepting patient to [facility] OB service. Time Spent: Less than 30 Minutes
--- NOTE | 2019-01-24 19:34 | PDOC CONSULTATION ---
Consultation Consult Date: 01/24/19 Consult reason:: Hyperbilirubinemia, history of biliary stent History of Present Illness Admission Date/PCP: 01/23/19 17:11 HUY SHERWOOD MD Patient complains of: Itching, jaundice, history of biliary stent History of Present Illness: MARYELLEN HERNANDEZ is a 33 year old female seen in consultation at the request of Dr. Clara Saul. Patient has a long and complicated biliary history. Patient underwent cholecystectomy in the past, and required a biliary stent. Per the patient, her stent has been in place for "many years". The patient has had her stent exchanged several times. Her most recent stent exchange was at 10 weeks of her . This last stent was to "get her through her " so that further intervention could be performed. The patient reports a 1 day history of abdominal pain, jaundice, and itching. The patient presented to the hospital for evaluation. Nothing makes her symptoms better or worse. Her abdominal pain is mild at present, rating it 2 out of 10. She denies chest pain, shortness of breath, fevers, chills, nausea, vomiting, melena, blurry vision. She does report malaise, bonifacio colored stools, and upper abdominal pain. Past Medical History GI Medical History: Reports: Other - Long-term biliary stent Past Surgical History Past Surgical History: Reports: Cholecystectomy - With stent placement 2 last placed October 2017 at [facility] Social History Smoking Status: Unknown if Ever Smoked Frequency of Alcohol Use: None Hx Recreational Drug Use: No Hx Prescription Drug Abuse: No - Advance Directive Resuscitation Status: Full Code Family History Family History: None Parental Family History Reviewed: Yes Children Family History Reviewed: Yes Sibling(s) Family History Reviewed.: Yes Medication/Allergy Home Medications: Ferrous Sulfate [Iron] 325 mg PO DAILY 12/30/18 Vit,Calc76/Iron/Folic [Prenatabs Rx Tablet] 1 tab PO DAILY 12/30/18 Allergies/Adverse Reactions: No Known Allergies Allergy (Verified 01/23/19 14:49) Review of Systems Constitutional: ABSENT: chills, fever(s), headache(s) Eyes: ABSENT: visual disturbances Ears: ABSENT: hearing changes Nose, Mouth, and Throat: ABSENT: sore throat Cardiovascular: ABSENT: chest pain, dyspnea on exertion Respiratory: ABSENT: cough Gastrointestinal: PRESENT: abdominal pain, other - Bonifacio colored stool Genitourinary: ABSENT: dysuria Musculoskeletal: ABSENT: back pain Integumentary: PRESENT: other - Jaundice Neurological: ABSENT: confusion, convulsions, dizziness Psychiatric: ABSENT: anxiety, depression Endocrine: ABSENT: cold intolerance, heat intolerance Hematologic/Lymphatic: ABSENT: easy bleeding, easy bruising Physical Exam Vital Signs: Intake & Output 01/23/19 01/24/19 01/25/19 06:59 06:59 06:59 Weight 98.6 kg General appearance: PRESENT: no acute distress, cooperative Head exam: PRESENT: atraumatic, normocephalic Eye exam: PRESENT: EOMI, PERRLA, scleral icterus Mouth exam: PRESENT: moist, neck supple Neck exam: ABSENT: meningismus, tenderness, thyromegaly, tracheal deviation Respiratory exam: PRESENT: clear to auscultation urmila, unlabored. ABSENT: tachypnea, wheezes Cardiovascular exam: PRESENT: RRR Pulses: PRESENT: normal radial pulses GI/Abdominal exam: PRESENT: soft. ABSENT: distended, guarding, rigid, tenderness Rectal exam: PRESENT: deferred Extremities exam: ABSENT: clubbing Musculoskeletal exam: ABSENT: deformity Neurological exam: PRESENT: alert, awake, oriented to person, oriented to place, oriented to time, oriented to situation, CN II-XII grossly intact Psychiatric exam: ABSENT: agitated, anxious, depressed Focused psych exam: ABSENT: delusional Skin exam: PRESENT: jaundice Results Laboratory Results: 01/24/19 05:46 01/24/19 05:46 01/24/19 01/24/19 01/24/19 05:46 05:46 08:00 WBC 5.7 RBC 3.70 L Hgb 10.6 L Hct 30.9 L MCV 84 MCH 28.6 MCHC 34.2 RDW 14.6 H Plt Count 283 Seg Neutrophils % 70.5 Lymphocytes % 24.0 Monocytes % 4.0 Eosinophils % 1.2 Basophils % 0.3 Absolute Neutrophils 4.0 Absolute Lymphocytes 1.4 Absolute Monocytes 0.2 Absolute Eosinophils 0.1 Absolute Basophils 0.0 Sodium 135.1 L Potassium 3.7 Chloride 108 H Carbon Dioxide 19 L Anion Gap 8 BUN 5 L Creatinine 0.42 L Est GFR ( Amer) > 60 Est GFR (Non-Af Amer) > 60 Glucose 99 Calcium 8.6 Total Bilirubin 2.1 H GGT 725 H AST 48 H ALT 85 H Alkaline Phosphatase 609 H Total Protein 6.1 L Albumin 2.9 L Urine Color ANA Urine Appearance SLIGHTLY-CLOUDY Urine pH 6.0 Ur Specific [place] 1.015 Urine Protein NEGATIVE Urine Glucose (UA) NEGATIVE Urine Ketones NEGATIVE Urine Blood NEGATIVE Urine Nitrite NEGATIVE Ur Leukocyte Esterase TRACE H Assessment & Plan - Diagnosis (1) Biliary stent obstruction Qualifiers: Encounter type: initial encounter Qualified Code(s): T85.590A - Other mechanical complication of bile duct prosthesis, initial encounter Is this a current diagnosis for this admission?: Yes - Plan Summary Plan Summary: This is a 33-year-old female with a complicated biliary history. She has an indwelling biliary stent with new onset hyperbilirubinemia. I believe her stent is occluded. Due to her long and complicated biliary history, as well as the unavailability of gastroenterology at this institution, I recommend transfer to a tertiary facility for further care (preferably the facility that has treated this patient before). This is been discussed with the patient at length. She agrees with the treatment plan. I have discussed the case personally with Dr. Saul. She is making arrangements for transfer of the patient.
== END 2019-01-24 13:55 | disposition short-term general hospital (02) ==
LOC: LC 14:38 → LR 17:11
PROVIDERS: ADMIT Obstetrics & Gynecology Gynecology; ATTEND Obstetrics & Gynecology Gynecology
PROC: 4A0HXCZ Measurement of Products of Conception, Cardiac Rate, External Approach (ICD-10-PCS; principal; 2019-01-23)
DX: O26.613 Liver and biliary tract disorders in pregnancy, third trimester (principal); T85.590A Other mechanical complication of bile duct prosthesis, initial encounter; K83.1 Obstruction of bile duct; Y73.2 Prosthetic and other implants, materials and accessory gastroenterology and urology devices associated with adverse incidents; O26.893 Other specified pregnancy related conditions, third trimester; L29.9 Pruritus, unspecified; Z91.14 Patient's other noncompliance with medication regimen; Z3A.36 36 weeks gestation of pregnancy; Z98.890 Other specified postprocedural states; Z90.49 Acquired absence of other specified parts of digestive tract
CPT/HCPCS: 59025; 36415 ×2; 82977 ×2; 85025 ×2; 81005; 80053 ×2; 80307; 82239; G0378 ×2; G0379; J3490 ×2

== ENCOUNTER 2019-07-22 15:15 | Emergency (ER) | payer SELFPAY ==
[2019-07-22 15:28] VITALS: BP 131/76
--- NOTE | 2019-07-22 15:39 | ER Document Report ---
HPI - HPI Patient complains to provider of: Toothache Time Seen by Provider: 07/22/19 15:36 Onset: Other Onset/Duration: Persistent Quality of pain: Achy, Throbbing Severity: Severe Pain Level: 4 Context: This 34-year-old female presents emergency department with complaints of right upper dental pain for the past 3 days. Reports that she has had this pain before she was placed on antibiotics and it went away. She reports she does not have dental insurance. Denies fever vomiting diarrhea. Patient able to open her mouth wide good airway. Associated Symptoms: None Exacerbated by: Denies Relieved by: Denies Similar symptoms previously: No Recently seen / treated by doctor: No Past Medical History - General Information source: Patient Last Menstrual Period: just finished - Social History Smoking Status: Unknown if Ever Smoked Frequency of alcohol use: None Drug Abuse: None Lives with: Family Family History: None Patient has suicidal ideation: No Patient has homicidal ideation: No - Medical History Medical History: Negative Renal/ Medical History: Denies: Hx Peritoneal Dialysis Past Surgical History: Reports: Hx Cholecystectomy - With stent placement 2 last placed October 2017 at [facility] - Immunizations Immunizations up to date: Yes Vertical Provider Document - CONSTITUTIONAL Agree With Documented VS: Yes Exam Limitations: No Limitations General Appearance: WD/WN, No Apparent Distress - INFECTION CONTROL TRAVEL OUTSIDE OF THE [place] IN LAST 30 DAYS: No - HEENT HEENT: Atraumatic, Normocephalic. negative: Conjuctival Injection, Pharyngeal Erythema Mouth Diagram: 1 - c/o pain, opens mouth wide, no trismus, no erythema no obvious swelling no pustule no Jamaal - NECK Neck: Normal Inspection, Supple. negative: Lymphadenopathy-Left, Lym phadenopathy-Right - RESPIRATORY Respiratory: No Respiratory Distress - CARDIOVASCULAR Cardiovascular: Regular Rate - MUSCULOSKELETAL/EXTREMETIES Musculoskeletal/Extremeties: MAEW, FROM - NEURO Level of Consciousness: Awake, Alert, Appropriate Motor/Sensory: No Motor Deficit - DERM Integumentary: Warm, Dry Course - Re-evaluation Re-evalutation: 07/22/19 15:50 This 34-year-old female presents with dental pain. We discussed penicillin. We also discussed the importance of follow-up with a dentist to take care of the problem. She was given a list of dental resources to follow-up with. She verbalized understanding to all instructions. Dictation of this chart was performed using voice recognition software; therefore, there may be some unintended grammatical errors. - Vital Signs Vital signs: Temp Pulse Resp BP Pulse Ox 98.2 F 81 16 131/76 H 98 07/22/19 15:27 07/22/19 15:27 07/22/19 15:27 07/22/19 15:27 07/22/19 15:27 Discharge - Discharge Clinical Impression: Pain, dental Condition: Stable Disposition: HOME, SELF-CARE Instructions: [facility], Penicillin V K ([facility]), Toothache ([facility]) Additional Instructions: *You have been evaluated for dental pain *Take medications as prescribed, take Tylenol Motrin as indicated for pain *Follow up with dentist as soon as possible *Return to ED for worsening condition, changes, needs Prescriptions: Penicillin V Potassium [Penicillin Vk 500 mg Tablet] 500 mg PO BID #20 tablet Referrals: HUY SHERWOOD MD [Primary Care Provider] - Follow up as needed
== END 2019-07-22 15:46 | disposition home or self-care (01) ==
LOC: ER 15:15
DX: K08.89 Other specified disorders of teeth and supporting structures (principal)
CPT/HCPCS: 99282